=== PATIENT | male | born 1955 ===

== ENCOUNTER 2017-04-15 06:23 | Day surgery (SDC) | payer MEDICARE ==
[2017-04-15 06:51] VITALS: BMI 29.8
[2017-04-15] MEDS ORDERED: Lidocaine 2% w Epi 1:100,000 Inj IJ ONE ×2 (07:49→09:05)
[2017-04-15] MEDS ORDERED: Lidocaine 1% Inj (20ml) ONE (07:49)
[2017-04-15] MEDS ORDERED: Bupivacaine 0.5% Inj(30mL) ONE (07:49)
--- NOTE | 2017-04-15 08:36 | CP.SDSHP ---
Same Day Surgery H & P - History Proposed Procedure: Excision of Cyst, R Breast Pre-Op Diagnosis: R Breast cyst - Previous Medical/Surgical History Endocrine/Metabolic: Diabetes - Allergies Allergies: Allergies No Known Allergies Allergy (Verified 04/15/17 06:51) - Current Medications Current Medications: ASA, Metformin - Physical Exam General Appearance: NAD, well noursihed Vital Signs: Vital Signs 04/15/17 06:53 Temperature 98.1 F Pulse Rate 79 Respiratory 18 Rate Blood Pressure 117/72 O2 Sat by Pulse 97 Oximetry Mental Status: Alert & Oriented x3 Neuro: WNL Heart: WNL Lungs: WNL GI: WNL - Impression Impression: 61yo M w/ R breast Cyst Pt. Evaluated Today:Candidate for Anesthesia & Procedure: Yes - Date & Time Date: 04/15/17 Time: 08:35 Short Stay Discharge - Short Stay Discharge Admitting Diagnosis/Reason for Visit: L72.9 Disposition: HOME/ ROUTINE Medications: Acetaminophen with Codeine [Tylenol with Codeine #3 Tablet] 1 each PO Q6H PRN # 20 tablet PRN Reason: Pain, Moderate (4-7) Referrals: Kirstin Holloway MD [Primary Care Provider] - Carl Agudelo MD [Staff Provider] - Follow-up: 1 week Additional Instructions (Diet, Activity): Resume regular diet, you may remove dressing in 2 days.
[2017-04-15] MEDS ORDERED: Methylene Blue 10 mg/ml (1ml) Inj ONE (08:45)
[2017-04-15] MEDS ORDERED: Hydrogen Peroxide 237 ML SOL TP ONE (09:05)
[2017-04-15] MEDS ORDERED: Methylene Blue 10 mg/ml (1ml) Inj IV ONE (09:05)
--- NOTE | 2017-04-15 09:30 | PCM.SURG1 ---
Surgeon's Initial Post Op Note - Surgeon's Notes Surgeon: Dr. Agudelo Filing Clerk: Dr. Diaz PGY2 Type of Anesthesia: Local Pre-Operative Diagnosis: Right Breast Cyst Operative Findings: same Post-Operative Diagnosis: same Operation Performed: Excision of Cyst, Right Breast Specimen/Specimens Removed: R breast cyst Estimated Blood Loss: EBL {In ML}: 5 Blood Products Given: N/A Drains Used: No Drains Post-Op Condition: Good Date of Surgery/Procedure: 04/15/17 Time of Surgery/Procedure: 09:31
[2017-04-15 09:33] VITALS: RESP 18
[2017-04-15 10:15] VITALS: O2SAT 98
[2017-04-15 10:16] VITALS: BP 137/66; PULSE 72; TEMP 97.6
--- NOTE | 2017-04-15 17:14 | OP ---
PROCEDURE DATE: 04/15/2017 OPERATION PERFORMED: Excision of infected cyst, right breast. SURGEON: Carl Agudelo MD. EXPENDITURE REQUISITION CLERK: Dr. Diaz. ANESTHESIA: Local anesthesia. PREOPERATIVE DIAGNOSIS: Infected cyst, right breast. POSTOPERATIVE DIAGNOSIS: Infected cyst, right breast. ESTIMATED BLOOD LOSS: Minimal. OPERATIVE PROCEDURE: The patient was taken to the operating room, placed supine on the operating tab le. The right chest was then prepped and draped in the standard surgical fashion. Lidocaine 1% with epinephrine was infiltrated to create a field block. Once that was done, an opening was found in th e draining sinus and an Angiocath was inserted. This was then filled with methylene blue and peroxid e. Once that was done, the draining sinus was grasped and pulled upwards and an elliptical incision was made in the skin at the base and, using a combination of traction and sharp dissection, the cyst was enucleated fully. Once that was done, hemostasis was achieved using the electrocautery and the a willie was closed using interrupted 3-0 silk suture. The patient then had a sterile dressing applied, w as transported to recovery in satisfactory condition. Sponge, instrument, and needle counts were correct at the end of the case. Carl Agudelo MD cc: 139 TT: 04/15/2017 17:13:50 radha
== END 2017-04-15 10:15 | disposition home or self-care (01) ==
LOC: H.OPSURG 06:23
PROVIDERS: ATTEND Surgery
DX: L72.9 Follicular cyst of the skin and subcutaneous tissue, unspecified (principal)
CPT/HCPCS: 19120; 82948; 88307; J7030; Q9968